=== PATIENT | female | born 1955 | race Caucasian/White ===

== ENCOUNTER → 2017-03-29 | Outpatient (CLI) | payer OTHER ==
--- NOTE | ~2017-03-29 | CT138 ---
[facility] A Service of [facility] & [facility] / [facility] RADIOLOGY TEXT RESULTS PATIENT: DIAMOND CAR LOCATION: [facility] : 59 UNIT #: [id number] AGE: [address]: Fei Antony MD SEX: F ORDER DR: [id number] [place], [place] [address] [id number] O MR#: [id number] Acc #: [id number] NAME: DIAMOND CAR : 1955 SEX: F STUDY DATE/TIME: 03/29/2017 8:02 UNIT: [facility] ROOM: STUDY DESCRIPTION: CT Lung screening initial Attending Physician: Fei Antony M.D. Referring Physician: Fei Antony M.D. Ordering Physician: Fei Antony M.D. Primary Care Physician: Fei Antony M.D. MEDICAL IMAGING REPORT This report is preliminary unless electronic signature is present EXAM CT lung cancer screening. INDICATIONS Lung cancer screening. 42 pack-year smoking history. PROCEDURE Unenhanced low-dose CT of the chest performed per lung cancer screening protocol. CTDI 2.6 mg. Total DLP 96.91 mGy-cm. This CT exam was performed with one or more of the following radiation dose reduction techniques: automatic exposure control, adjustment of mA and/or kV according to patient size, and iterative reconstruction. COMPARISON None FINDINGS 3.1 cm area of ground-glass opacity with some surrounding clustered nodularity in the superior segment of the left lower lobe. There is also clustered nodularity and ground-glass opacity in the right middle lobe. No acute findings in the included upper abdomen. Uncomplicated cholelithiasis. No aggressive appearing bone lesion. IMPRESSION 1. Ground-glass opacity and clustered micronodularity in the right middle lobe and superior segment of the left lower lobe is most in keeping with infectious or inflammatory change. Recommend attention on a short-interval followup study after appropriate therapy to document clearing. 2. No other suspicious pulmonary nodule is seen. 3. Lung-RADS category 2s, benign findings. [facility] A Service of [facility] / [facility] RADIOLOGY TEXT RESULTS PATIENT: DIAMOND CAR LOCATION: [facility] : 59 UNIT #: [id number] AGE: [address]: Fei Antony MD SEX: F ORDER DR: Dictated by... Jeffy Yates M.D. THIS IS AN ELECTRONICALLY VERIFIED REPORT Jeffy Yates M.D. at 04/01/2017 7:08 AM ZOHREH/[email or web address] TD: 03/31/2017 12:06 JOB #: [id number] MEDICAL IMAGING REPORT Page 1 of 1 COPY
== END | disposition home or self-care (01) ==
LOC: CCAT 07:27
DX: Z87.891 Personal history of nicotine dependence (principal); R91.8 Other nonspecific abnormal finding of lung field
CPT/HCPCS: G0297

== ENCOUNTER → 2017-05-06 | Outpatient (CLI) | payer OTHER ==
--- NOTE | ~2017-05-06 | CT57 ---
[facility] A Service of [facility] & [facility] RADIOLOGY TEXT RESULTS PATIENT: DIAMOND CAR LOCATION: [facility] : 59 UNIT #: [id number] AGE: [address]: Fei Antony MD SEX: F ORDER DR: [id number] [facility] [address] [place], [place] [address] [id number] O MR#: [id number] [facility] #: [id number] NAME: DIAMOND CAR : 1955 SEX: F STUDY DATE/TIME: 05/06/2017 09:41 UNIT: [facility] ROOM: STUDY DESCRIPTION: CT Chest Wo Cont Attending Physician: Fei Antony M.D. Referring Physician: Fei Antony M.D. Ordering Physician: Fei Antony M.D. Primary Care Physician: Fei Antony M.D. MEDICAL IMAGING REPORT This report is preliminary unless electronic signature is present EXAM CT chest without contrast 05/06/2017 0941 hours HISTORY 61-year-old with complaint of cough for 2 weeks. Follow up abnormal lung cancer screening CT demonstrating ground-glass changes in the lungs on 03/29/2017. TECHNIQUE Helical noncontrasted images were obtained from the thoracic inlet through the adrenal glands. Sagittal and coronal reconstructions were performed. Total exam DLP 616 mGy-cm. This CT exam was performed with one or more of the following radiation dose reduction techniques: automatic control, adjustment of mA and/or kV according to patient size, and iterative reconstruction. FINDINGS Images through the thoracic inlet demonstrate no thyroid mass or adenopathy. Images through the chest demonstrate normal caliber aorta, pulmonary arteries. There are coronary artery calcifications. There are benign calcified subcarinal nodes. There is no pathologic adenopathy. No pericardial or pleural fluid. The esophagus is normal. The lungs are significantly improved. Previous ground-glass and micronodular change in the right middle lobe has nearly completely resolved. There is some linear density remaining which likely represents scar. There has been complete resolution of the ground-glass and fine nodular change in the left lower lobe. There are no residual suspicious nodules. There is a calcified granuloma in the medial left lower lobe on image 93. STS. [facility] A Service of [facility] & [facility] RADIOLOGY TEXT RESULTS PATIENT: DIAMOND CAR LOCATION: [facility] : 59 UNIT #: [id number] AGE: [address]: Fei Antony MD SEX: F ORDER DR: IMPRESSION 1. Benign chest CT. Previous ground-glass and micronodular changes in the left lower lobe have completely resolved. Previous ground-glass and micronodular changes in the right middle lobe have significantly improved. There is only minimal linear density remaining which likely represents scar or atelectasis. There is no residual ground-glass or nodular change. 2. Lung-RADS category 1 negative annual lung cancer screening CT followup recommended in 12 months. Dictated by... Jaqueline Anderson M.D. THIS IS AN ELECTRONICALLY VERIFIED REPORT Jaqueline Anderson M.D. at 05/07/2017 8:53 AM MARTIN/milvia TD: 05/06/2017 16:12 JOB #: [id number] MEDICAL IMAGING REPORT Page 1 of 1 COPY
== END | disposition home or self-care (01) ==
LOC: CCAT 09:15
DX: R05 Cough (principal)
CPT/HCPCS: 71250